=== PATIENT | female | born 1945 | race Caucasian/White ===

== ENCOUNTER 2019-10-12 13:45 | Inpatient (IN) | payer MEDICARE ==
[~2019-10-12] VITALS: Ht 170.2 cm; Wt 68.2 kg
--- NOTE | 2019-10-12 14:08 | NUR ---
PT. TO CT BEFORE BEING PLACED IN ROOM
[2019-10-12 14:28] LABS: BASOPHILS # (AUTO) 0.1 X10'3 (0-0.2); EOSINOPHILS # (AUTO) 0.1 X10'3 (0-0.9); EOSINOPHILS % (AUTO) 0.8 % (0-6); HEMATOCRIT 46.4 % (35.0-45.0); HEMOGLOBIN 15.4 g/dl (12.0-16.0); LYMPHOCYTES # (AUTO) 1.6 X10'3 (1.1-4.8); LYMPHOCYTES % (AUTO) 22.2 % (21-51); MEAN CORPUSCULAR HEMOGLOBIN 31.6 PG (27.0-31.0); MEAN CORPUSCULAR HGB CONC 33.2 g/dL (33.0-36.5); MEAN CORPUSCULAR VOLUME 95.1 FL (78-98); MEAN PLATELET VOLUME 7.6 FL (7.4-10.4); MONOCYTES # (AUTO) 0.6 X10'3 (0-0.9); MONOCYTES % (AUTO) 7.8 % (2-12); NEUTROPHILS % (AUTO) 68.2 % (42-75); PLATELET COUNT 323 X10'3 (140-440); RED BLOOD COUNT 4.88 X10'6 (4.20-5.60); RED CELL DISTRIBUTION WIDTH 14.4 % (11.5-14.5); WHITE BLOOD COUNT 7.3 X10'3 (4.5-11.0)
[2019-10-12 14:43] LABS: ALANINE AMINOTRANSFERASE 7 U/L (12-78); ALBUMIN 4.8 G/DL (3.4-5.0); ALBUMIN/GLOBULIN RATIO 1.1 (1.1-1.5); ALKALINE PHOSPHATASE 75 IU/L (46-116); ANION GAP 7 (8-16); ASPARTATE AMINO TRANSFERASE 15 U/L (10-37); BILIRUBIN,TOTAL 0.3 MG/DL (0.1-1.0); BLOOD UREA NITROGEN 33 MG/DL (7-18); BUN/CREATININE RATIO 34.7 (6.6-38.0); CALCIUM 10.2 MG/DL (8.5-10.1); CHLORIDE 102 MMOL/L (99-107); CREATININE 0.95 MG/DL (0.40-0.90); GLUCOSE 104 MG/DL (70-104); POTASSIUM 4.6 MMOL/L (3.5-5.1); SODIUM 140 MMOL/L (135-145); TOTAL CARBON DIOXIDE 30.8 MMOL/L (24-32); TOTAL PROTEIN 9.2 G/DL (6.4-8.2); eGFR 57 ML/MIN
[2019-10-12 14:47] LABS: PARTIAL THROMBOPLASTIN TIME 25 SECONDS (22-32); TROPONIN I < 0.04 NG/ML (0.0-0.05)
[2019-10-12] MEDS ORDERED: aspirin 81mg tab.chew PO ONE (14:50)
[2019-10-12] MEDS ORDERED: CARB1TAB24 PO (15:33)
[2019-10-12] MEDS: normal saline 1000ml 1,000 ML IV SCH (16:44)
[2019-10-12] MEDS ORDERED: mag hydrox/Alum hydrox/simeth 30ml oral suspension PO PRN (16:45)
[2019-10-12] MEDS ORDERED: potassium CL 10mEq/100ml bag 100 ML IV PRN ×2 (16:45)
[2019-10-12] MEDS ORDERED: morphine 2 MG/ML inj. syringe IV PRN ×2 (16:45)
[2019-10-12] MEDS ORDERED: docusate sod 100mg capsule PO PRN (16:45)
[2019-10-12] MEDS ORDERED: ondansetron/PF 4mg/2ml inj IV PRN (16:45)
[2019-10-12] MEDS ORDERED: acetaminophen 325mg tablet PO PRN (16:45)
[2019-10-12] MEDS ORDERED: magnesium 2GM in 50ml NS 50 ML IV PRN (16:45)
[2019-10-12] MEDS ORDERED: potassium Cl 20 mEq SR tablet PO PRN ×2 (16:45)
[2019-10-12] MEDS ORDERED: magnesium 4gm in 100ml NS 100 ML IV PRN (16:45)
[2019-10-12] MEDS ORDERED: iohexol 350MG/ML 100ml bottle IV ONE (16:57)
[2019-10-12] MEDS: carbidoba-levodopa 25-100mg tablet PO SCH ×2 (17:59→22:07)
[2019-10-12 19:45] VITALS: BP 148/82
[2019-10-12] MEDS: K and/or MAG REPLACEMENT MC SCH (20:00)
[2019-10-12 22:00] VITALS: BP 143/54
[2019-10-13] MEDS: normal saline 1000ml 1,000 ML IV SCH ×2 (02:44→13:43)
--- NOTE | 2019-10-13 06:34 | NUR ---
Patient in room ORTHO 4009. I have received report from Amadeo and had the opportunity to ask questions and assume patient care.
[2019-10-13 07:00] VITALS: BP 128/64
[2019-10-13 07:46] LABS: BASOPHILS # (AUTO) 0.1 X10'3 (0-0.2); EOSINOPHILS # (AUTO) 0.1 X10'3 (0-0.9); EOSINOPHILS % (AUTO) 1.6 % (0-6); HEMOGLOBIN 13.2 g/dl (12.0-16.0); LYMPHOCYTES # (AUTO) 1.5 X10'3 (1.1-4.8); LYMPHOCYTES % (AUTO) 25.3 % (21-51); MEAN CORPUSCULAR HEMOGLOBIN 31.8 PG (27.0-31.0); MEAN CORPUSCULAR HGB CONC 33.8 g/dL (33.0-36.5); MEAN CORPUSCULAR VOLUME 94.2 FL (78-98); MEAN PLATELET VOLUME 8.2 FL (7.4-10.4); MONOCYTES # (AUTO) 0.5 X10'3 (0-0.9); NEUTROPHILS # (AUTO) 3.6 X10'3 (1.8-7.7); NEUTROPHILS % (AUTO) 63.1 % (42-75); PLATELET COUNT 279 X10'3 (140-440); RED BLOOD COUNT 4.14 X10'6 (4.20-5.60); RED CELL DISTRIBUTION WIDTH 13.9 % (11.5-14.5); WHITE BLOOD COUNT 5.8 X10'3 (4.5-11.0)
[2019-10-13] MEDS: enoxaparin 40mg/0.4ml syringe SQ SCH ×2 (08:00→13:43)
[2019-10-13] MEDS: K and/or MAG REPLACEMENT MC SCH ×2 (08:00→20:00)
[2019-10-13] MEDS: carbidoba-levodopa 25-100mg tablet PO SCH ×5 (08:00→22:07)
[2019-10-13 08:18] LABS: ALANINE AMINOTRANSFERASE 6 U/L (12-78); ALBUMIN 3.6 G/DL (3.4-5.0); ALBUMIN/GLOBULIN RATIO 1.1 (1.1-1.5); ALKALINE PHOSPHATASE 49 IU/L (46-116); ANION GAP 8 (8-16); ASPARTATE AMINO TRANSFERASE 16 U/L (10-37); BILIRUBIN,TOTAL 0.5 MG/DL (0.1-1.0); BLOOD UREA NITROGEN 17 MG/DL (7-18); BUN/CREATININE RATIO 26.2 (6.6-38.0); CALCIUM 8.7 MG/DL (8.5-10.1); CHLORIDE 108 MMOL/L (99-107); CHOL/HDL RATIO 2.5 (0.00-4.99); CHOLESTEROL 161 MG/DL (0-200); CREATININE 0.65 MG/DL (0.40-0.90); GLUCOSE 86 MG/DL (70-104); HDL CHOLESTEROL 65 MG/DL (35-60); LDL CHOLESTEROL 81 MG/DL (50-100); MAGNESIUM 2.2 MG/DL (1.5-2.4); SODIUM 143 MMOL/L (135-145); TOTAL PROTEIN 6.9 G/DL (6.4-8.2); TRIGLYCERIDES 54 MG/DL (20-135); eGFR 89 ML/MIN
[2019-10-13 18:00] VITALS: BP 162/60
[2019-10-13] MEDS: aspirin 81mg tablet.DR PO SCH (18:06)
--- NOTE | 2019-10-13 18:30 | NUR ---
Patient in room ORTHO 4009. I have received report from Vic SANDERS and had the opportunity to ask questions and assume patient care.
--- NOTE | 2019-10-13 18:41 | NUR ---
Problems reprioritized. Patient report given, questions answered & plan of care reviewed with Meka.
--- NOTE | 2019-10-13 19:29 | NUR ---
Received report from tele pt has been in sinus arrhythmia HR 30's-60's, rcvd order to continue Tele
[2019-10-13 22:00] VITALS: BP 151/71
[2019-10-14 06:00] VITALS: BP 132/51
--- NOTE | 2019-10-14 06:05 | NUR ---
received report from rah penn
[2019-10-14 06:17] LABS: BASOPHILS % (AUTO) 0.8 % (0-1); EOSINOPHILS # (AUTO) 0.1 X10'3 (0-0.9); EOSINOPHILS % (AUTO) 2.2 % (0-6); HEMOGLOBIN 13.1 g/dl (12.0-16.0); LYMPHOCYTES # (AUTO) 1.6 X10'3 (1.1-4.8); LYMPHOCYTES % (AUTO) 29.1 % (21-51); MEAN CORPUSCULAR HEMOGLOBIN 31.7 PG (27.0-31.0); MEAN CORPUSCULAR HGB CONC 33.7 g/dL (33.0-36.5); MEAN CORPUSCULAR VOLUME 94.1 FL (78-98); MEAN PLATELET VOLUME 7.9 FL (7.4-10.4); MONOCYTES # (AUTO) 0.4 X10'3 (0-0.9); MONOCYTES % (AUTO) 7.8 % (2-12); NEUTROPHILS # (AUTO) 3.3 X10'3 (1.8-7.7); NEUTROPHILS % (AUTO) 60.1 % (42-75); PLATELET COUNT 272 X10'3 (140-440); RED BLOOD COUNT 4.14 X10'6 (4.20-5.60); RED CELL DISTRIBUTION WIDTH 14.2 % (11.5-14.5); WHITE BLOOD COUNT 5.6 X10'3 (4.5-11.0)
--- NOTE | 2019-10-14 06:36 | NUR ---
Problems reprioritized. Patient report given, questions answered & plan of care reviewed with Mila SANDERS.
[2019-10-14 06:57] VITALS: BP_SYST 153; BP_SYST 157; BP_SYST 162; BP_DIAS 52; BP_DIAS 53; BP_DIAS 60
[2019-10-14] MEDS: aspirin 81mg tablet.DR PO SCH (07:59)
[2019-10-14 08:00] VITALS: BP_SYST 149; BP_SYST 164; BP_SYST 183; BP_DIAS 73; BP_DIAS 86; BP_DIAS 92
[2019-10-14] MEDS: K and/or MAG REPLACEMENT MC SCH (08:00)
[2019-10-14] MEDS: carbidoba-levodopa 25-100mg tablet PO SCH ×2 (08:52→13:19)
[2019-10-14 10:00] VITALS: BP 149/73
--- NOTE | 2019-10-14 11:54 | NUR ---
Student documentation: I have reviewed all interventions, assessments performed and documented by [facility]. Student Medication Administration: For this medication-pass time frame, all medication were reviewed, dispensed, administered and documented per hospital policy by [facility].
[2019-10-14] MEDS ORDERED: ATOR20TA66 PO (13:28)
[2019-10-14] MEDS ORDERED: CLOP75TA35 PO (13:37)
[2019-10-14] MEDS ORDERED: ASPI-1071 PO (13:37)
--- NOTE | 2019-10-14 15:35 | NUR ---
pt d/c w/instructions, understanding of instructions and w/all belongings in wheelchair accompanied by nursing staff to private vehicle to go home and f/u w/pcp and assistant therapy aide
[2019-10-14] MEDS ORDERED: clopidogrel 75mg tablet PO SCH (18:00)
--- NOTE | 2019-10-15 16:04 | NUR ---
Case Management DC follow up: Spoke with pt via telephone. Status post: TIA reports:"doing good" denies any/all stroke-like symptoms, understands FAST. Denies: acute/continuous cp, emergent SOB, acute general pain, resp distress, N/V, vertigo, sycope episodes, MCLEAN blurry vision, abd pain/distension, diarrhea, constipation, bladder pain, dysuria, polyuria, hematuria, retention, urgency, unexplained bleeding/bruising,fever. Went over orthostatic hypotension protocol as a precaution r/t new meds. Verbalizes understanding of s/s that would warrant 11-05/ER visit for evaluation. Verbalizes understanding of new Rx: asa, lipitor plavix, why prescribed, resumes current Rx as ordered, denies ase r/t polypharmacy. Understands instructions for dual platelet therapy both for 21 days then continue asa. Acknowledges need to schedule/keep follow up appts w/PCP/[employer]/Michel. Both follow ups 10/19/19 in [facility]. Verbalizes compliance w/DC aftercare. Needs met, questions answered at DC, no further questions r/t post status DC at this time. Addendum: 10/15/19 at 1611 by Bea Barlow RN [facility] appts
== END 2019-10-14 15:25 | disposition home or self-care (01) | DRG 64 ==
LOC: ER 13:46 → ED HOLD 16:44 → ORTHO 4S 19:15
PROVIDERS: ADMIT Family Medicine; ATTEND Family Medicine
PROC: 4A00X4Z Measurement of Central Nervous Electrical Activity, External Approach (ICD-10-PCS; principal; 2019-10-12)
DX: I63.9 Cerebral infarction, unspecified (principal); G93.41 Metabolic encephalopathy; I51.0 Cardiac septal defect, acquired; R00.1 Bradycardia, unspecified; G25.81 Restless legs syndrome; G20 Parkinson's disease; N28.9 Disorder of kidney and ureter, unspecified; M17.0 Bilateral primary osteoarthritis of knee; Z79.82 Long term (current) use of aspirin; Z79.02 Long term (current) use of antithrombotics/antiplatelets; Z80.8 Family history of malignant neoplasm of other organs or systems
CPT/HCPCS: 36415; 70450; 70496; 70498; 70551; 71045; 80053; 80061; 83735; 84484; 85025; 85610; 85730; 87081; 92508; 92616; 93005; 93306; 95816; 99285; G0378; J1650; J7030; Q9967